=== PATIENT | male | born 1995 | race African-American/Black ===

== ENCOUNTER 2020-06-22 10:43 | Emergency (ER) | payer MEDICAID, SELFPAY ==
[2020-06-22 17:26] LABS: SARS-CoV-2 MS2 Positive; SARS-CoV-2 N Gene Negative; SARS-CoV-2 S Gene Negative; SARS-CoV-2 by NAA Not Detected (NotDetected); SARS-CoV-2 orf1ab Negative
== END 2020-06-22 12:07 | disposition home or self-care (01) ==
LOC: ERS 10:43
DX: R09.81 Nasal congestion (principal); R05 Cough; J34.89 Other specified disorders of nose and nasal sinuses; R43.9 Unspecified disturbances of smell and taste; Z20.822 Contact with and (suspected) exposure to COVID-19
CPT/HCPCS: 87635; 99283; U0003; U0005